=== PATIENT | male | born 2000 | race Caucasian/White ===

== ENCOUNTER 2023-05-14 22:14 | Emergency (ER) | payer BC, SELFPAY ==
[2023-05-14 22:20] VITALS: BP 165/101; PULSE 79; RESP 16; TEMP 36.4; O2SAT 99; BMI 27.9
--- NOTE | 2023-05-14 23:19 | ED.SKABFB1 ---
HPI - Skin/Abscess/Foreign Bdy General Chief complaint: Skin/Abscess/Foreign Body Stated complaint: LOWER LEG PAIN Time Seen by Provider: 05/14/23 23:17 Source: patient Mode of arrival: walk-in History of Present Illness HPI narrative: Is 22-year-old male, nondiabetic presents for evaluation of a blister on the base of his right foot. The patient states he was playing pickle ball on Friday and was wearing a pair of hey dude shoes. His foot was likely rubbing on the bottom of the shoes. He developed an approximately 2 x 2 centimeter blister on the anterior aspect of the great toe. Since then he has developed some red streaks on the arch of his foot. He does not have any fever. He does not have a history of MRSA. The blister has not opened. Is no drainage or swelling. Related Data Allergies Allergy/AdvReac Type Severity Reaction Status Date / Time Penicillins Allergy Unknown Verified 05/14/23 22:28 Review of Systems ROS Status of ROS 10 or more systems reviewed and unremarkable except as noted in history and below [facility] Medical History (Updated 05/14/23 @ 23:26 by Isabella Wang MD) Surgical History (Updated 05/14/23 @ 22:29 by Adalid Oconnor) Exam Constitutional Vital Signs - 24 hr 05/14/23 22:20 Temperature 97.6 F Pulse Rate [Monitor] 79 Respiratory Rate 16 Blood Pressure [Right Arm] 165/101 H Pulse Oximetry 99 Oxygen Delivery Method Room Air Documenting provider has reviewed patient's vital signs: yes (Patient has be hypertensive blood pressure 165/101) Common normals: no apparent distress Respiratory Common normals: normal respiratory effort, no retractions, no use of accessory muscles and clear to auscultation bilaterally Cardio Common normals: no JVD, regular rate, regular rhythm, S1 normal heart sound, S2 normal heart sound, no gallops and no clicks Extremity Common normals: normal to inspection (2 x 2 cm blister on the base of the right foot) and no calf tenderness Right lower extremity: foot and digits (2, approximately 3 cm lymphangitic streaks adjacent to the blister ) Course Vital Signs Vital signs: Vital Signs Temperature 97.6 F 05/14/23 22:20 Pulse Rate 79 05/14/23 22:20 Respiratory Rate 16 05/14/23 22:20 Blood Pressure 165/101 H 05/14/23 22:20 Pulse Oximetry 99 05/14/23 22:20 Oxygen Delivery Method Room Air 05/14/23 22:20 Temperature 97.6 F 05/14/23 22:20 Pulse Rate 79 05/14/23 22:20 Respiratory Rate 16 05/14/23 22:20 Blood Pressure 165/101 H 05/14/23 22:20 Pulse Oximetry 99 05/14/23 22:20 Oxygen Delivery Method Room Air 05/14/23 22:20 MDM - Skin/Abscess/Foreign Bdy MDM Narrative Medical decision making narrative: This 22-year-old male presents for evaluation of a blister on the base of his right foot that started 2 days ago with some local erythema. He has not had a fever. He has not had diabetes. He requested that I open the blister but I explained to him that the blister provides a protective seal for the skin underneath and opening the blister would not benefit him at this time. He does have some local lymphangitic streaking adjacent to the blister. He is ALLERGIC to beta lactamase antibiotics and was medicated with doxycycline and ibuprofen. A soft dressing was applied by the nursing staff to cushion the foot. He'll be discharged home with prescription for doxycycline and ibuprofen. Discharge Plan Discharge Chief Complaint: Skin/Abscess/Foreign Body Clinical Impression: Soft tissue infection of foot, Blister Patient Disposition: Home, Self-Care Time of Disposition Decision: 23:24 Condition: Good Print Language: Ukrainian Instructions: Cellulitis (ED), Blister (ED), Warm Compress or Soak (ED) Stand Alone Forms: Portal Instructions Referrals: Theresa Morris MD [Primary Care Provider] - 1 week
[2023-05-14] MEDS: DOXYCYCLINE MONOHYDRATE 100 MG CAPSULE PO (23:59)
[2023-05-15] MEDS: IBUPROFEN 600 MG TABLET PO
== END 2023-05-15 00:02 | disposition home or self-care (01) ==
PROVIDERS: Emergency Provider Emergency Medicine; PCP Family Medicine
DX: S90.821A Blister (nonthermal), right foot, initial encounter (principal); L08.9 Local infection of the skin and subcutaneous tissue, unspecified; X58.XXXA Exposure to other specified factors, initial encounter
CPT/HCPCS: 99283